=== PATIENT | female | born 1985 | race Two or more races ===

== ENCOUNTER 2017-10-02 07:06 | Inpatient (IN) | payer OTHER ==
[~2017-10-02] VITALS: Ht 157.5 cm; Wt 84.1 kg
[~2017-10-02 07:06] MED LIST: DOXY100C2 PO; IBUP-1223 PO; IBUP200T49 PO; OXYC-302 PO; OXYC1TAB7 PO; ZOLP-413 PO; ZOLP10TA PO
[2017-10-02] MEDS ORDERED: OXYTOCIN 30U/ 0.9% NaCL 500ML 500 ML IV ONE (07:23)
[2017-10-02] MEDS ORDERED: PREN1TAB60 PO (07:29)
[2017-10-02] MEDS ORDERED: FENTANYL PF 100 MCG/2ML IVPush PRN (07:30)
[2017-10-02] MEDS ORDERED: LEVO75TA5 PO (07:30)
[2017-10-02] MEDS ORDERED: ONDANSETRON 2MG/ML, 2ML IVPush PRN (07:30)
[2017-10-02] MEDS: D5%-LACTATED RINGERS 1,000 ML IV SCH ×3 (07:33→23:33)
[2017-10-02 07:54] LABS: BASOPHILS # (AUTO) 0.03 x10^3/uL (0-0.1); BASOPHILS % (AUTO) 0 % (0-1); EOSINOPHILS # (AUTO) 0.08 x10^3/uL (0-0.4); EOSINOPHILS % (AUTO) 1 % (1-7); LYMPHOCYTES # (AUTO) 2.44 x10^3/uL (1-3.4); LYMPHOCYTES % (AUTO) 21 % (22-44); MD NO; MEAN CORPUSCULAR HEMOGLOBIN 31.1 pg (27.0-34.8); MEAN CORPUSCULAR HGB CONC 34.1 g/dL (32.4-35.8); MEAN CORPUSCULAR VOLUME 91.1 fL (80-100); MEAN PLATELET VOLUME 9.8 fL (7.4-10.4); MONOCYTES # (AUTO) 0.81 x10^3/uL (0.2-0.8); MONOCYTES % (AUTO) 7 % (2-9); NEUTROPHILS # (AUTO) 8.04 x10^3/uL (1.8-6.8); NEUTROPHILS % (AUTO) 71 % (42-75); PLATELET COUNT 213 x10^3/uL (130-400); RED BLOOD COUNT 4.35 x10^6/uL (3.82-5.3); RED CELL DISTRIBUTION WIDTH 14.3 % (9.6-15.2)
[2017-10-02] MEDS: LACTATED RINGERS 1,000 ML IV SCH ×5 (07:55→21:13)
[2017-10-02] MEDS ORDERED: FENTANYL/BUPIV./NS/PF 250 ML EPIDCONT SCH ×2 (08:26→13:13)
[2017-10-02] MEDS ORDERED: FENTANYL PF 500 MCG, BUPIVACAINE/PF 0.5%, 30ML 62.5 ML in SODIUM CHLORIDE 0.9% 177.5 ML EPIDCONT SCH (09:00)
[2017-10-02] MEDS ORDERED: NEWBORN KIT ONE (09:07)
[2017-10-02] MEDS ORDERED: OXYTOCIN 30U/ 0.9% NaCL 500ML 500 ML ONE ×2 (09:07→21:10)
[2017-10-02] MEDS ORDERED: BUPIVACAINE 0.25% ONE (11:56)
[2017-10-02] MEDS ORDERED: EPHEDRINE 50 MG/ML, 1ML IVPush PRN (13:30)
[2017-10-02] MEDS ORDERED: LACTATED RINGERS 1,000 ML IVBOLUS PRN (13:30)
[2017-10-02] MEDS ORDERED: OXYTOCIN 30U/ 0.9% NaCL 500ML 500 ML IV PRN (13:43)
[2017-10-02] MEDS ORDERED: ACETAMINOPHEN 325 MG TABLET ONE (13:57)
[2017-10-02] MEDS ORDERED: ACETAMINOPHEN 325 MG TABLET PO PRN (14:00)
[2017-10-02] MEDS ORDERED: OXYTOCIN 30U/ 0.9% NaCL 500ML 500 ML IV SCH (20:59)
[2017-10-02] MEDS ORDERED: MISOPROSTOL 200 MCG TABLET PO PRN (21:00)
[2017-10-02] MEDS ORDERED: OXYcodone/APAP 5/325MG TABLET PO PRN (21:00)
[2017-10-02] MEDS ORDERED: ONDANSETRON 2MG/ML, 2ML IV PRN (21:00)
[2017-10-02 23:30] VITALS: BP 125/72
[2017-10-03 03:00] VITALS: BP 121/74
[2017-10-03 03:27] LABS: BASOPHILS # (AUTO) 0.06 x10^3/uL (0-0.1); BASOPHILS % (AUTO) 0 % (0-1); EOSINOPHILS # (AUTO) 0.02 x10^3/uL (0-0.4); EOSINOPHILS % (AUTO) 0 % (1-7); LYMPHOCYTES # (AUTO) 1.73 x10^3/uL (1-3.4); LYMPHOCYTES % (AUTO) 12 % (22-44); MD NO; MEAN CORPUSCULAR HEMOGLOBIN 31.2 pg (27.0-34.8); MEAN CORPUSCULAR VOLUME 91.8 fL (80-100); MEAN PLATELET VOLUME 9.7 fL (7.4-10.4); MONOCYTES # (AUTO) 0.88 x10^3/uL (0.2-0.8); MONOCYTES % (AUTO) 6 % (2-9); NEUTROPHILS # (AUTO) 11.64 x10^3/uL (1.8-6.8); NEUTROPHILS % (AUTO) 81 % (42-75); PLATELET COUNT 184 x10^3/uL (130-400); RED BLOOD COUNT 3.91 x10^6/uL (3.82-5.3); RED CELL DISTRIBUTION WIDTH 14.7 % (9.6-15.2)
[2017-10-03] MEDS: LACTATED RINGERS 1,000 ML IV SCH (05:13)
[2017-10-03] MEDS: OXYcodone IR 5MG TABLET PO PRN (05:32)
[2017-10-03] MEDS: DOCUSATE 100 MG CAPSULE PO PRN ×2 (07:21→21:03)
[2017-10-03] MEDS: PRENATAL VIT/IRON/FA 1 EACH TABLET PO SCH (07:21)
[2017-10-03 08:00] VITALS: BP 111/64
[2017-10-03] MEDS: IBUPROFEN 600 MG TABLET PO PRN ×3 (08:20→21:03)
[2017-10-03 12:00] VITALS: BP 129/80
[2017-10-03 16:15] VITALS: BP 113/66
[2017-10-03 16:22] VITALS: BP 113/66
[2017-10-03 20:15] VITALS: BP 108/74
[2017-10-04 09:00] VITALS: BP 113/76
[2017-10-04] MEDS: OXYcodone IR 5MG TABLET PO PRN ×2 (09:33→14:39)
[2017-10-04] MEDS: IBUPROFEN 600 MG TABLET PO PRN (09:33)
[2017-10-04] MEDS: PRENATAL VIT/IRON/FA 1 EACH TABLET PO SCH (09:33)
[2017-10-04] MEDS: DOCUSATE 100 MG CAPSULE PO PRN (09:33)
[2017-10-04] MEDS ORDERED: IBUP-1222 PO (14:13)
[2017-10-04] MEDS ORDERED: OXYC-302 PO (14:14)
[2017-10-04] MEDS ORDERED: DOCU-131 PO (14:14)
== END 2017-10-04 14:41 | disposition home or self-care (01) | DRG 775 ==
LOC: LDOP 07:06 → LDIP 07:44 → 2NW 22:45
PROVIDERS: ADMIT Obstetrics & Gynecology; ATTEND Obstetrics & Gynecology
PROC: 10E0XZZ Delivery of Products of Conception, External Approach (ICD-10-PCS; principal; 2017-10-02)
PROC: 0KQM0ZZ Repair Perineum Muscle, Open Approach (ICD-10-PCS; 2017-10-02)
PROC: 3E0R3BZ Introduction of Anesthetic Agent into Spinal Canal, Percutaneous Approach (ICD-10-PCS; 2017-10-02)
PROC: 00HU33Z Insertion of Infusion Device into Spinal Canal, Percutaneous Approach (ICD-10-PCS; 2017-10-02)
DX: O69.3XX0 Labor and delivery complicated by short cord, not applicable or unspecified (principal); O99.284 Endocrine, nutritional and metabolic diseases complicating childbirth; E03.9 Hypothyroidism, unspecified; O70.1 Second degree perineal laceration during delivery; O43.199 Other malformation of placenta, unspecified trimester; I86.8 Varicose veins of other specified sites; Z37.0 Single live birth; Z3A.38 38 weeks gestation of pregnancy; Z90.49 Acquired absence of other specified parts of digestive tract
CPT/HCPCS: 36415; 85025; 86850; 86900; J3490; J2590; J3010; J7120